=== PATIENT | female | born 1990 | race American Indian/Alaskan Native ===

== ENCOUNTER 2016-11-11 18:03 | Outpatient (CLI) | payer MEDICAID ==
[2016-11-11 18:26] VITALS: BP 102/59
[2016-11-11 18:44] LABS: Bacteria,Urine 1+ /HPF (Negative); Bilirubin,Urine NEG (Negative); Blood,Urine NEG (Negative); Ketones,Urine NEG (Negative); Leukocyte Esterase,Urine MOD (Negative); Mucus,Urine 3+ /HPF; Nitrite,Urine NEG (Negative)
[2016-11-11] MEDS ORDERED: LACTATED RINGERS 1,000 ML IV SCH (19:20)
[2016-11-11] MEDS ORDERED: LACTATED RINGERS 1,000 ML ONE (19:24)
== END 2016-11-11 19:58 | disposition left against medical advice (07) ==
LOC: TRG 18:03
PROVIDERS: ATTEND Obstetrics & Gynecology
DX: O77.9 Labor and delivery complicated by fetal stress, unspecified (principal); O47.9 False labor, unspecified; Z3A.00 Weeks of gestation of pregnancy not specified
CPT/HCPCS: 59025; 81001; 81025; 96360; J7120

== ENCOUNTER 2017-04-13 20:53 | Outpatient (CLI) | payer MEDICAID ==
[2017-04-13 21:59] LABS: Bacteria,Urine 1+ /HPF (Negative); Bilirubin,Urine NEG (Negative); Blood,Urine NEG (Negative); Ketones,Urine TR mg/dL (Negative); Leukocyte Esterase,Urine MOD (Negative); Mucus,Urine 3+ /HPF; Nitrite,Urine NEG (Negative)
[2017-04-13 22:03] VITALS: BP 109/60
== END 2017-04-13 22:20 | disposition home or self-care (01) ==
LOC: TRG 20:53
PROVIDERS: ATTEND Obstetrics & Gynecology
DX: O47.1 False labor at or after 37 completed weeks of gestation (principal); Z3A.37 37 weeks gestation of pregnancy
CPT/HCPCS: 81001

== ENCOUNTER 2017-05-02 08:44 | Inpatient (IN) | payer MEDICAID ==
[2017-05-02] MEDS ORDERED: CYTOTEC ONE (09:06)
[2017-05-02] MEDS ORDERED: BRETHINE IVP PRN (09:18)
[2017-05-02] MEDS ORDERED: BRETHINE SUB-Q PRN (09:18)
[2017-05-02] MEDS ORDERED: XYLOCAINE 2% INFILTRATI ONE (09:18)
[2017-05-02] MEDS ORDERED: CYTOTEC PR ONE (09:20)
[2017-05-02] MEDS ORDERED: BENADRYL PO PRN (09:21)
[2017-05-02] MEDS ORDERED: MILK OF MAGNESIA PO PRN (09:21)
[2017-05-02] MEDS ORDERED: LANSINOH TP PRN (09:21)
[2017-05-02] MEDS ORDERED: TUCKS PAD TP PRN (09:21)
[2017-05-02] MEDS ORDERED: PHENERGAN PO PRN (09:21)
[2017-05-02] MEDS ORDERED: PHENERGAN PR PRN (09:21)
[2017-05-02] MEDS ORDERED: ZOFRAN IV PRN (09:21)
[2017-05-02] MEDS ORDERED: TYLENOL PO PRN (09:21)
[2017-05-02] MEDS ORDERED: DULCOLAX PR PRN (09:21)
--- NOTE | 2017-05-02 09:29 | History and Physical Report ---
History of Present Illness Date of examination: 05/02/17 Date of admission: 05/02/17 08:54 Chief complaint: Contractions History of present illness: 27 y/o 38.5 weeks presents in active labor, care at [facility] since 25.5 weeks.HSV +, GBS-. Past History Past Medical History: no pertinent history Past Surgical History: no surgical history [employer] ENGINEER History: herpes Family/Genetic History: none Social history: no significant social history - Obstetrical History Expected Date of Delivery: 05/11/17 Actual Gestation: 38 Week(s) 5 Day(s) : 5 Para: 3 Spontaneous Abortions: 1 Number of Living Children: 3 Medications and Allergies Allergies Allergy/AdvReac Type Severity Reaction Status Date / Time No Known Allergies Allergy Unverified 02/22/16 04:38 Home Medications Medication Instructions Recorded Confirmed Last Taken Type HYDROcodone/APAP 5-325 [[place] 1 each PO Q6HR PRN #20 tablet 02/22/16 Unknown Rx 5/325] Active Meds: Active Medications Acetaminophen (Tylenol) 650 mg PO Q4H PRN PRN Reason: Pain MILD(1-3)/Fever >100.5/COATES Acetaminophen/Hydrocodone Bitart ([place] 5/325) 2 each PO Q6H PRN PRN Reason: Pain, Moderate (4-6) Bisacodyl (Dulcolax) 10 mg DE BID PRN PRN Reason: Constipation Diphenhydramine HCl (Benadryl) 25 mg PO Q6H PRN PRN Reason: Itching Lactated Ringer's (Lactated Ringers) 1,000 mls @ 125 mls/hr IV DIRECT DUYEN Oxytocin/Sodium Chloride (Pitocin/Ns 20 Unit/1000ml Drip) 20 units in 1,000 mls @ 125 mls/hr IV DIRECT DUYEN Ibuprofen (Motrin) 600 mg PO Q6H DUYEN Lidocaine (Xylocaine 2%) 20 ml INFILTRATI ONCE ONE Stop: 05/02/17 09:19 Magnesium Hydroxide (Milk Of Magnesia) 30 ml PO HS PRN PRN Reason: Constipation Misoprostol (Cytotec) 600 mcg DE ONCE ONE Stop: 05/02/17 09:21 Multi-Ingredient Ointment (Lansinoh) 1 applic TP PRN PRN PRN Reason: Sore Nipples Ondansetron HCl (Zofran) 4 mg IV Q8H PRN PRN Reason: Nausea And Vomiting Oxytocin (Pitocin) 10 unit IM ONCE ONE Stop: 05/02/17 09:21 Promethazine HCl (Phenergan) 25 mg DE Q6H PRN PRN Reason: Nausea And Vomiting Promethazine HCl (Phenergan) 25 mg PO Q6H PRN PRN Reason: Nausea And Vomiting Sodium Chloride (Sodium Chloride Flush Syringe 10 Ml) 10 ml IV PRN NR Terbutaline Sulfate (Brethine) 0.25 mg SUB-Q ONCE PRN PRN Reason: Hyperstimulation/Hypertonicity Stop: 05/02/17 09:19 Terbutaline Sulfate (Brethine) 0.25 mg IVP ONCE PRN PRN Reason: Hyperstimulation/Hypertonicity Stop: 05/02/17 09:19 Witch Brianna/Glycerin (Tucks Pad) 1 each TP PRN PRN PRN Reason: Hemorrhoid/cleansing/soothing - Vital Signs Vital signs: Vital Signs Pulse BP 76 109/59 05/02/17 09:19 05/02/17 09:19 Temp Pulse Resp BP Pulse Ox 76 109/59 05/02/17 09:19 05/02/17 09:19 - Physical Exam Breasts: Positive: deferred Cardiovascular: Regular rate Lungs: Positive: Clear to auscultation Abdomen: Positive: soft Genitourinary (Female): Positive: normal external genitalia Uterus: Positive: enlarged Deep Tendon Reflex Grade: Normal +2 - Obstetrical FHR: category 1 Uterine Contraction Monitor Mode: External Cervical Dilatation: 10 Cervical Effacement Percentage: 100 station: +2 Uterine Contraction Pattern: Regular Uterine Contraction Intensity: Strong/Firm Results All other labs normal. Assessment and Plan A: Active labor, srom P: Delivered
--- NOTE | 2017-05-02 09:36 | Procedure Note ---
OB Delivery Note - Delivery Date of Delivery: 05/02/17 Surgeon: REN TAYLOR Estimated blood loss: 200cc - Vaginal Delivery presentation: vertex Delivery position: OA Intrapartum events: none Delivery induction: none Delivery monitor: external FHT Route of delivery: Delivery placenta: spontaneous Delivery cord: nuchal cord, other (wrapped around body, arm and neck) Episiotomy: none Delivery laceration: none Anesthesia: none Delivery comments: of a viable female 5# 8oz @ 0857 on 05/02 over intact perineum. Cord wrapped around the body, arm and neck but loose. 8/9. PLacenta delivered 3 VCI. IM Pitocin 10mg and Cytotec 600mg MS as she has no IV. Bladder emptied but less than 100cc returned.. FF @ U-2., lochia small. Mother and baby doing well - A at 1 minute: 8 at 5 minutes: 9 Gender: Female (5# 8oz)
[2017-05-02] MEDS ORDERED: LACTATED RINGERS 1,000 ML IV SCH (10:00)
[2017-05-02] MEDS ORDERED: SODIUM CHLORIDE FLUSH SYRINGE 10 ML IV NR (10:00)
[2017-05-02] MEDS ORDERED: PITOCin/NS 20 UNIT/1000ML DRIP 20 UNITS/1,000 ML BAG IV SCH (10:00)
[2017-05-02] MEDS: MOTRIN PO SCH ×3 (10:51→22:35)
[2017-05-02] MEDS: NORCO 5/325 PO PRN (12:09)
[2017-05-02 12:27] LABS: Hematocrit 36.1 % (30.3-42.9); Mean Corpuscular HGB Conc 33 % (30-34); Mean Corpuscular Hemoglobin 29 pg (28-32); Mean Corpuscular Volume 88 fl (79-97); Platelet Count 190 K/mm3 (140-440); Red Blood Count 4.11 M/mm3 (3.65-5.03); Red Cell Distribution Width 13.6 % (13.2-15.2); White Blood Count 9.9 K/mm3 (4.5-11.0)
[2017-05-02 20:52] LABS: Hematocrit 30.5 % (30.3-42.9); Hemoglobin 10.3 gm/dl (10.1-14.3)
[2017-05-03] MEDS: MOTRIN PO SCH ×5 (04:19→23:26)
--- NOTE | 2017-05-03 09:15 | Progress Note ---
Assessment and Plan A; PPD #1 - stable P; Discharge home in am Subjective - Subjective Date of service: 05/03/17 Principal diagnosis: Interval history: 27 y/o 38.5 weeks presents in active labor, care at [facility] since 25.5 weeks.HSV +, GBS-. Patient reports: appetite normal [place]: doing well Objective - Vital Signs Latest vital signs: Vital Signs Temp Pulse Resp BP 05/03/17 07:55 98.1 F 76 16 100/60 05/03/17 04:19 18 05/03/17 00:00 98.6 F 77 16 111/71 05/02/17 22:35 18 05/02/17 20:00 98.6 F 69 16 101/77 05/02/17 18:57 98.9 F 66 18 110/68 05/02/17 11:15 99.1 F 67 18 108/66 05/02/17 10:39 67 105/58 05/02/17 10:29 67 112/62 05/02/17 10:19 67 103/57 05/02/17 10:09 69 103/55 05/02/17 09:59 70 111/57 05/02/17 09:49 75 114/63 05/02/17 09:39 76 104/57 05/02/17 09:29 69 104/58 05/02/17 09:19 76 109/59 Intake and Output 05/02/17 05/03/17 05/03/17 22:59 06:59 14:59 Intake Total 1000 550 Output Total 325 400 Balance 675 150 Intake: IV 450 PITOCin/NS 20 UNIT/1000ML 450 DRIP 20 units In 1,000 ml @ 125 mls/hr IV DIRECT DUYEN Rx#:[id number] Oral 250 250 Intake, Free Water 300 300 Output: Urine 325 400 Void 325 400 Other: Total, Intake Amount 250 250 Total, Output Amount 325 400 # Voids Void 1 - Exam Breasts: Present: deferred, mass Cardiovascular: Present: Regular rate Lungs: Present: Clear to auscultation Abdomen: Present: soft Vulva: both: normal Uterus: Present: fundal height below umbilicus Deep Tendon Reflex Grade: Normal +2
--- NOTE | 2017-05-03 09:17 | Discharge Summary ---
Providers - Providers Date of Admission: 05/02/17 08:54 Date of discharge: 05/04/17 Attending physician: DORY CALIX MD Primary care physician: DORY CALIX MD Hospitalization Reason for admission: active labor Delivery: Episiotomy: none Laceration: none complications: none [place] baby: female Condition at discharge: Good Disposition: DC-01 TO HOME OR SELFCARE Plan - Provider Discharge Summary Activity: routine, no sex for 6 weeks, no strenuous exercise Diet: routine Instructions: routine Additional instructions: [] Smoking cessation referral if applicable(refer to patient education folder for contact #) [] Refer to [facility] Booklet Call your doctor immediately for: * Fever > 100.5 * Heavy vaginal bleeding ( >1 pad per hour) * Severe persistent headache * Shortness of breath * Reddened, hot, painful area to leg or breast * Drainage or odor from incision. * Keep incision clean and dry at all times and follow doctor's instructions regarding bathing/showering - Follow up plan Follow up: [facility] [Provider Group] - 6 Weeks
[2017-05-03] MEDS: NORCO 5/325 PO PRN (19:06)
[2017-05-04] MEDS: MOTRIN PO SCH (05:16)
[2017-05-04 09:43] VITALS: BP 111/64
== END 2017-05-04 11:53 | disposition home or self-care (01) | DRG 775 ==
LOC: TRG 08:44 → LD 08:54 → OB 11:30
PROVIDERS: ADMIT Obstetrics & Gynecology; ATTEND Obstetrics & Gynecology
PROC: 10E0XZZ Delivery of Products of Conception, External Approach (ICD-10-PCS; principal; 2017-05-02)
DX: O69.81X0 Labor and delivery complicated by cord around neck, without compression, not applicable or unspecified (principal); O42.02 Full-term premature rupture of membranes, onset of labor within 24 hours of rupture; Z3A.38 38 weeks gestation of pregnancy; Z37.0 Single live birth
CPT/HCPCS: 36415; 85014; 85018; 85027; J2590